=== PATIENT | male | born 1955 | race African-American/Black ===

== ENCOUNTER 2017-04-30 12:57 | Outpatient (CLI) | payer OTHER ==
--- NOTE | 2017-04-30 13:58 | RAD ---
CERVICAL SPINE SERIES 3 VIEWS: HISTORY: Neck pain. History also states a followup of fracture. FINDINGS/IMPRESSION: The vertebral bodies are normal in height. There is severe degenerative change along the course of t he spine with disk narrowing from the C4-5 to the C7-T1 level. Degenerative facet changes are also p resent. No soft tissue swelling. It is difficult to definitely appreciate a fracture on these image s. POS: [facility]
== END 2017-04-30 12:58 | disposition home or self-care (01) ==
LOC: TBSIIMAG 12:57
PROVIDERS: ATTEND Neurological Surgery
DX: S12.9XXA Fracture of neck, unspecified, initial encounter (principal); M47.812 Spondylosis without myelopathy or radiculopathy, cervical region; M48.02 Spinal stenosis, cervical region
CPT/HCPCS: 72040